=== PATIENT | female | born 1940 | race Caucasian/White ===

== ENCOUNTER → 2020-11-27 14:46 | Outpatient (CLI) | payer MEDICARE, SELFPAY ==
[2020-11-27 16:19] LABS: Alanine Aminotransferase 21 U/L (12-78); Albumin Level 4.8 g/dl (3.5-5.0); Alkaline Phosphatase 63 U/L (38-126); Anion Gap 10.2 mEq/L (5-15); Aspartate Amino Transferase 32 U/L (14-36); Bilirubin,Direct 0.2 mg/dl (0.0-0.4); Bilirubin,Indirect 0.2 mg/dL (0.0-0.9); Bilirubin,Total 0.4 mg/dl (0.2-1.3); Bilirubin,Unconjugated 0.3 mg/dL (0.0-1.1); Blood Urea Nitrogen 19 mg/dl (7-17); Calcium 10.5 mg/dl (8.4-10.2); Carbon Dioxide 33 mmol/L (22.0-30.0); Chloride 102 mmol/L (98-107); Chol/HDL Ratio 4.7 (1-3.5); Cholesterol 231 mg/dl (140-200); Estimated Glomerular Filt Rate 69 ml/min (>60); GFR (African American) 83 ML/MIN (>60); Glucose 86 mg/dl (74-100); HDL Cholesterol 49 mg/dl (40-60); Potassium 4.2 mmoL/L (3.5-5.1); Sodium 141 mmol/L (136-145); Total Protein,Serum 7.6 g/dl (6.3-8.2); Triglycerides 242 mg/dl (30-150); VLDL Cholesterol 48 mg/dL (0-40)
[2020-11-27 16:28] LABS: NT Pro Brain Natriuretic Pep. 1350 pg/mL (0-450)
[2020-11-27 16:50] LABS: Thyroid Stimulating Hormone 1.31 uIU/mL (0.465-4.68)
[2020-11-27 21:23] LABS: Free T4 (Free Thyroxine) 0.89 ng/dl (0.78-2.19)
== END ==
PROVIDERS: PCP General Practice; Visit Provider Internal Medicine Cardiovascular Disease
DX: G47.9 Sleep disorder, unspecified (principal); I20.8 Other forms of angina pectoris; R00.2 Palpitations; R06.00 Dyspnea, unspecified; R94.31 Abnormal electrocardiogram [ECG] [EKG]; Z86.73 Personal history of transient ischemic attack (TIA), and cerebral infarction without residual deficits
CPT/HCPCS: 36415; 80048; 80061; 80076; 83880; 84439; 84443; 93270

== ENCOUNTER → 2020-12-02 12:13 | Outpatient (CLI) | payer MEDICARE, SELFPAY ==
--- NOTE | 2020-12-02 12:59 | CA_ITS ---
APPROVED REPORT EXAM: Comprehensive 2D, Doppler, and color-flow Echocardiogram Administrative Associate: Julianna Sidhu CRT Ht: 5 ft 5 in Wt: 133lbs BSA: 1.66 BP: 156/90 mmHg Indications: Chest Pain, Shortness of Breath, Palpitations, Fatigue, TIA, Radation Therapy-breast CA 2D Dimensions LVOT 1.94 cm (M/F) 1.5-2.5 LA Volume 39.20 mL LA Volume Index 23.60 mL/m2 (M/F) 16-34 M-Mode Dimensions RVDd 2.39 cm (0.9-2.6) LA Diam 3.73 cm (1.9-4.0) LVDd 4.78 cm (3.5-5.7) Ao Diam 3.37 cm (2.0-3.7) LVDs 3.53 cm (3.5-5.7) IVSd 2.00 cm (0.6-1.1) PWd 1.00 cm (0.6-1.1) EF (Teich) 51.30% FS 26.20% EDV (Teich) 106.50 mL TAPSE 2.10 (<1.7) ESV (Teich) 51.90 mL LV Diastology E Decel Time 150.00 (160-240 msec) E/A Ratio 4.52 MED E' 11.80 (< 7 cm/sec) MED A' 7.70 cm/s E'/MED E' Ratio 12.91 (>14) LAT E' 9.00 (<10 cm/sec) LAT A' 8.40 cm/s E/LAT E' Ratio 16.92 (>14) Aortic Valve AI PHT 441.00 ms AO Peak GR. 11.50 mmHg Mitral Valve MV E Max Sachin. 152.00 (40-130 cm/s) MV A Velocity 34.00 (40-130 cm/s) E/A Ratio 4.52 MV Decel. Time 150.00 (160-240 ms) MV PHT 44.00 ms Pulmonary Valve PV Peak Velocity 53.00 (50-150 cm/s) Tricuspid Valve TR P. Velocity 337.00 cm/s RAP Estimate 10.00 mmHg RVSP 55.50 mmHg Left Ventricle Left atrium is mildly enlarged, left ventricle is normal size, severe reduced left ventricular systolic function, visually estimated ejection fraction 30%, there is abnormal septal motion. Doppler evidence of raise left ventricular end-diastolic pressure. Diastolic parameters are inconclusive. Right Ventricle Right atrium and right ventricle are normal size and contractility. Aortic Valve Aortic valve is thickened and calcified without aortic stenosis, there is mild aortic insufficiency. Mitral Valve Mitral valve is minimally thickened, there is moderate to severe mitral regurgitation. Tricuspid Valve Tricuspid grossly normal, there is mild tricuspid regurgitation, calculated right ventricular systolic pressure is 55 mmHg. Pulmonic Valve Pulmonic valve is poorly visualized. Great Vessels Aortic root is normal size. Inferior vena cava is not well visualized. Pericardium Small pericardial effusion noted, there is prominent echogenicity is seen of the pericardium, raising the concerns for presence of increased pericardial thickness and possible constriction. Clinically indicated CT scan of the chest is recommended to assess the thickness of the pericardium. Conclusion 1. Mildly enlarged left atrium, normal left ventricular size, mild concentric left ventricular hypertrophy, reduced left ventricular systolic function, visually estimated ejection fraction 30%, there is abnormal septal motion. Doppler evidence of raise left ventricular end-diastolic pressure, diastolic parameters are inconclusive. 2. Moderate to severe mitral and mild tricuspid regurgitation, calculated right ventricular systolic pressure is 55 mmHg. 3. Small pericardial effusion, increased echogenicity of the pericardium raising the concerns for increased pericardial thickness as well as constriction. If clinically indicated CT scan of the chest is recommended to measure the thickness of the pericardium. Inferior vena cava is not well visualized. Electronically signed by : Cj Guzman, 12/02/2020 21:27:29
--- NOTE | 2020-12-02 12:59 | CA_ITS ---
APPROVED REPORT Scheduling Clerk: LENIN Laterality: Bilateral Study Quality: Good Indications: carotid bruit, TIA Risk Factors TIA/CVA History Doppler Spectral Velocity Analysis ECA (R) 90.50/11.60 cm/s ECA (L) 88.00/11.60 cm/s dICA (R) 89.30/25.10 cm/s dICA (L) 83.40/20.90 cm/s Ifeanyi (R) 62.00/23.00 cm/s Ifeanyi (L) 67.90/23.00 cm/s pICA (R) 48.20/13.50 cm/s pICA (L) 52.20/13.70 cm/s dCCA (R) 60.70/17.10 cm/s dCCA (L) 54.00/12.30 cm/s mCCA (R) 62.00/22.50 cm/s pCCA (L) 87.10/17.60 cm/s pCCA (R) 64.60/13.70 cm/s Vert (L) 69.00/15.50 cm/s Vert (R) 81.80/8.60 cm/s ICA/CCA 1.54 ICA/CCA 1.47 Findings Duplex evaluation demonstrates no evidence of hemodynamically significant stenosis of the bilateral Internal Carotid Arteries. Duplex evaluation demonstrates no evidence of hemodynamically significant stenosis of the bilateral external Carotid Arteries. Duplex evaluation demonstrates stenosis of the left proximal internal carotid artery <20% with PSV <140 cm/sec, EDV <100 cm/sec, and IC/CC Ratio <4.0. Duplex evaluation demonstrates antegrade flow of the bilateral Vertebral Arteries. Duplex evaluation demonstrates stenosis of the right proximal internal carotid artery <20% with PSV <140 cm/sec, EDV <100 cm/sec, and IC/CC Ratio <4.0. Left vertebral artery appears to be 0.51cm in diameter, above normal parameters. Heterogeneous echogenecity of the visualized thyroid gland with suggestion of nodules, incompletely visualized on the current study. Few scattered lymph nodes are noted bilaterally. Conclusion Duplex evaluation demonstrates stenosis of the left proximal internal carotid artery <20% with PSV <140 cm/sec, EDV <100 cm/sec, and IC/CC Ratio <4.0. Duplex evaluation demonstrates antegrade flow of the bilateral Vertebral Arteries. Duplex evaluation demonstrates stenosis of the right proximal internal carotid artery <20% with PSV <140 cm/sec, EDV <100 cm/sec, and IC/CC Ratio <4.0. Heterogeneous echotexture of thyroid gland with possible nodules, incompletely visualized on the current study. Ultrasound of thyroid gland is recommended. Electronically signed by : Larissa Rolle, 12/02/2020 15:53:25
== END ==
PROVIDERS: PCP General Practice; Visit Provider Internal Medicine Cardiovascular Disease
DX: G47.9 Sleep disorder, unspecified (principal); I20.8 Other forms of angina pectoris; R00.2 Palpitations; R06.00 Dyspnea, unspecified; R94.31 Abnormal electrocardiogram [ECG] [EKG]; Z86.73 Personal history of transient ischemic attack (TIA), and cerebral infarction without residual deficits
CPT/HCPCS: 93306; 93880

== ENCOUNTER → 2020-12-04 10:02 | Outpatient (CLI) | payer MEDICARE, SELFPAY ==
--- NOTE | 2020-12-04 10:03 | CT_ITS ---
PROCEDURE: CT ANGIO CHEST CLINCIAL INDICATION: atypical angina Adequate opacification COMPARISON: No exams were available for comparison TECHNIQUE: IV Contrast: 70ML Isovue 370 Axial images obtained with sagittal and coronal reformats. All CT scans at the facility use one or more dose reduction, viz: automated exposure control, ma/kV adjustment per patient size (including targeted exams where dose is matched to indication, i.e. head), or iterative reconstruction technique. FINDINGS: HEART AND MEDIASTINAL STRUCTURES: Adequate opacification of the pulmonary arteries noted. No evidence of pulmonary embolism. The heart size is normal. Small pericardial effusion is noted with maximum depth measuring 1.6 centimeters. The pericardium otherwise appears within normal limits. Atherosclerotic vascular calcification of the thoracic aorta and coronary arteries are noted. LUNGS AND PLEURAL SPACES: No focal consolidation, pleural effusions or pneumothorax. Minor left basal atelectasis. The central tracheobronchial tree is patent. BONY STRUCTURES: No acute bony abnormalities apparent. UPPER ABDOMEN: Visualized upper abdominal solid organs are unremarkable allowing for the phase of IV contrast. ADDITIONAL FINDINGS: Multilevel degenerative changes of the visualized thoracic spine. IMPRESSION: No evidence of pulmonary embolism. Small pericardial effusion. No other acute intrathoracic abnormality. Dictated by: Larissa Rolle 12/04/2020 14:04 Larissa Rolle in [facility] 12/04/2020 14:05
== END ==
PROVIDERS: PCP General Practice; Visit Provider Internal Medicine Cardiovascular Disease
DX: G47.9 Sleep disorder, unspecified (principal); I20.8 Other forms of angina pectoris; R00.2 Palpitations; R06.00 Dyspnea, unspecified; R94.31 Abnormal electrocardiogram [ECG] [EKG]; Z86.73 Personal history of transient ischemic attack (TIA), and cerebral infarction without residual deficits
CPT/HCPCS: 71275; Q9967

== ENCOUNTER → 2020-12-16 15:24 | Outpatient (CLI) | payer MEDICARE, SELFPAY ==
[2020-12-16 16:00] LABS: Basophils % 0.4 % (0.1-2.0); Eosinophils # 0.1 K/mm3 (0.0-0.4); Eosinophils % 1.1 % (0.1-12.0); Hematocrit 41.1 % (37.0-47.0); Hemoglobin 14.1 g/dL (12.2-16.2); Lymphocytes # 2.8 K/mm3 (0.7-4.5); Lymphocytes % 34.2 % (10-50); Mean Corpuscular HGB Conc 34.4 g/dL (31.8-35.4); Mean Corpuscular Hemoglobin 32.7 pg (27.0-31.2); Mean Corpuscular Volume 95.1 fl (81-99); Mean Platelet Volume 7.8 fl (7.4-10.4); Monocytes # 0.4 K/mm3 (0.1-1.0); Monocytes % 5.1 % (1.7-9.3); Neutrophils # 4.8 K/mm3 (1.8-7.8); Neutrophils % 59.2 % (37.0-80.0); Platelet Count 191 K/mm3 (142-424); Red Blood Count 4.32 M/mm3 (4.20-5.40); Red Cell Distribution Width 12.2 % (11.5-17.5); White Blood Count 8.1 K/mm3 (4.8-10.8)
[2020-12-16 16:14] LABS: Anion Gap 7.4 mEq/L (5-15); Blood Urea Nitrogen 19 mg/dl (7-17); Calcium 9.2 mg/dl (8.4-10.2); Carbon Dioxide 29 mmol/L (22.0-30.0); Chloride 103 mmol/L (98-107); Estimated Glomerular Filt Rate 53 ml/min (>60); GFR (African American) 64 ML/MIN (>60); Glucose 106 mg/dl (74-100); Potassium 4.4 mmoL/L (3.5-5.1); Sodium 135 mmol/L (136-145)
== END ==
PROVIDERS: Visit Provider Internal Medicine Cardiovascular Disease
DX: I20.8 Other forms of angina pectoris (principal); I25.84 Coronary atherosclerosis due to calcified coronary lesion; I27.20 Pulmonary hypertension, unspecified; I34.0 Nonrheumatic mitral (valve) insufficiency; I50.20 Unspecified systolic (congestive) heart failure; R00.2 Palpitations; R06.00 Dyspnea, unspecified; R93.1 Abnormal findings on diagnostic imaging of heart and coronary circulation; R94.31 Abnormal electrocardiogram [ECG] [EKG]; Z86.73 Personal history of transient ischemic attack (TIA), and cerebral infarction without residual deficits; Z01.812 Encounter for preprocedural laboratory examination; U07.1 COVID-19; Z20.822 Contact with and (suspected) exposure to COVID-19
CPT/HCPCS: 80048; 85025; U0003

== ENCOUNTER 2020-12-18 08:29 | Day surgery (SDC) | payer MEDICARE, SELFPAY ==
[2020-12-18] VITALS (11 sets, daily range): BP systolic 90–188; BP diastolic 45–89; PULSE 57–74; RESP 16–18; TEMP 36.3–36.8; O2SAT 96–100; BMI 22.3
--- NOTE | 2020-12-18 07:10 | IR_ITS ---
APPROVED REPORT Patient Location: Outpatient PROCEDURES Right heart catheterization Left heart catheterization Left ventriculogram Selective coronary angiogram INDICATION Systolic congestive heart failure ejection fraction 30%, Pulmonary hypertension, Coronary artery calcification, Abnormal echocardiogram Informed consent was obtained prior to the procedure. COMPLICATIONS None Estimated Blood Loss: Less than 10 mls TECHNIQUE One percent lidocaine was used to anesthetize the right anterior aspect of the right wrist. The right radial artery was accessed via the Seldinger technique and a 6 [place] hydrophilic sheath was placed in the right radial artery. Following this one percent lidocaine was used to anesthetize the right anterior aspect of the right neck. The right internal jugular vein was accessed via the Seldinger technique and a 7 [place] sheath was placed in the right internal jugular vein. Following this an arterial cocktail was administered using 5000U heparin, 2.5 mg verapamil, 1mg Lidocaine and 800mcg nitroglycerin into the right radial sheath. A trap catheter was used to perform left heart catheterization left ventriculogram and selective coronary angiography while a [place] catheter was used to perform right heart catheterization. Saturations were obtained in the pulmonary artery and right atrium. At the end of the procedure the arterial sheath was removed good hemostasis was achieved using Traclet band. Patient was transferred to the postop holding area in stable condition for venous sheath removal. ANGIOGRAPHIC RESULTS The left main artery Normal The left anterior descending artery Has a proximal smooth 30% eccentric stenosis The circumflex artery There is a large dominant vessel and normal The right coronary artery Vestigial and normal The IGLESIAS ventriculogram reveals Normal 65% The left ventricular end-diastolic pressure Less than 10 mmHg Right atrial pressure 3 mmHg Pulmonary artery pressure 20/8 mmHg Pulmonary occlusion pressure 6 mmHg Right atrial saturation 81% Pulmonary saturation 80% IMPRESSION Mild nonflow limiting coronary disease Normal ejection fraction Low intracardial pulmonary filling pressures PLAN 1. Medical management Electronically signed by : Zain Gonsalez, 12/18/2020 10:41:28
[2020-12-18 14:10] LABS: CATHL Arterial O2 SAT 80 % (90-100); CATHL Venous O2 SAT 82 % (75-80)
== END 2020-12-18 13:57 | disposition home or self-care (01) ==
LOC: CATHLAB 08:33
PROVIDERS: PCP General Practice; Visit Provider Internal Medicine
DX: I25.84 Coronary atherosclerosis due to calcified coronary lesion; I27.20 Pulmonary hypertension, unspecified; I34.0 Nonrheumatic mitral (valve) insufficiency; I50.20 Unspecified systolic (congestive) heart failure; I51.9 Heart disease, unspecified; R00.2 Palpitations; R06.00 Dyspnea, unspecified; R93.1 Abnormal findings on diagnostic imaging of heart and coronary circulation; R94.31 Abnormal electrocardiogram [ECG] [EKG]; Z86.73 Personal history of transient ischemic attack (TIA), and cerebral infarction without residual deficits; I25.118 Atherosclerotic heart disease of native coronary artery with other forms of angina pectoris
CPT/HCPCS: 82810; 93460; 99152; C1725; C1769; C1894; J1644; Q9967

== ENCOUNTER → 2021-01-29 13:13 | Outpatient (CLI) | payer MEDICARE, SELFPAY ==
--- NOTE | 2021-01-29 13:14 | NM_ITS ---
APPROVED REPORT NM Technologist: JADYN Miles, RT (R)(N) Indication Abnormal ECG Pulmonary Hypertention Mitral Valve Prolapse Cardiac Disease: CAD Cardiomyopathy Congestive Heart Failure Procedure The above named patient was injected with 26.8 mCi of Tc99m tagged red blood cells. Impression LVEF lower normal at 53% Mild inferior and septal hypokinesia Conclusion LVEF lower normal at 53% Mild inferior and septal hypokinesia Electronically signed by : Mal Denis MD 01/30/2021 14:28:43
--- NOTE | 2021-01-29 15:12 | HMH.ITSHM ---
Current Home Medications as stated by this patient Krystyna Hassan or field representative. []TAMOXIFEN OMEPRAZOLE LOSARTAN BISOPROLOL ATORVASTATIN
== END ==
PROVIDERS: PCP General Practice; Visit Provider Internal Medicine Cardiovascular Disease
DX: I25.10 Atherosclerotic heart disease of native coronary artery without angina pectoris (principal); I27.20 Pulmonary hypertension, unspecified; I34.0 Nonrheumatic mitral (valve) insufficiency; I50.20 Unspecified systolic (congestive) heart failure; I51.9 Heart disease, unspecified; R94.31 Abnormal electrocardiogram [ECG] [EKG]; Z86.73 Personal history of transient ischemic attack (TIA), and cerebral infarction without residual deficits
CPT/HCPCS: 78473; A9512; A9560

== ENCOUNTER → 2021-10-23 09:39 | Outpatient (CLI) | payer MEDICARE, SELFPAY ==
--- NOTE | 2021-10-23 09:40 | CA_ITS ---
APPROVED REPORT EXAM: Comprehensive 2D, Doppler, and color-flow Echocardiogram Blade Grader Operator: Julianna Sidhu CRT Ht: 5 ft 5 in Wt: 136lbs BSA: 1.68 BP: 1555/88 mmHg Indications: hx tia's, phtn, severe mr cad 2D Dimensions LVOT 1.78 cm (M/F) 1.5-2.5 LA Volume 40.90 mL LA Volume Index 24.30 mL/m2 (M/F) 16-34 M-Mode Dimensions RVDd 3.05 cm (0.9-2.6) LA Diam 2.46 cm (1.9-4.0) LVDd 5.56 cm (3.5-5.7) Ao Diam 4.03 cm (2.0-3.7) LVDs 4.45 cm (3.5-5.7) IVSd 1.68 cm (0.6-1.1) PWd 0.51 cm (0.6-1.1) EF (Teich) 40.40% FS 20.00% EDV (Teich) 151.20 mL TAPSE 2.40 (<1.7) ESV (Teich) 90.10 mL LV Diastology E Decel Time 350.00 (160-240 msec) E/A Ratio 1.64 MED E' 8.60 (< 7 cm/sec) MED A' 5.40 cm/s E'/MED E' Ratio 15.09 (>14) LAT E' 11.80 (<10 cm/sec) LAT A' 5.80 cm/s E/LAT E' Ratio 11.00 (>14) Aortic Valve AI PHT 571.00 ms AO Peak GR. 12.00 mmHg Mitral Valve MV E Max Sachin. 130.00 (40-130 cm/s) MV A Velocity 79.00 (40-130 cm/s) E/A Ratio 1.64 MV Decel. Time 350.00 (160-240 ms) MV PHT 103.00 ms Pulmonary Valve PV Peak Velocity 226.00 (50-150 cm/s) Tricuspid Valve TR P. Velocity 319.00 cm/s RAP Estimate 10.00 mmHg RVSP 50.80 mmHg Left Ventricle Left atrium is moderately enlarged, left ventricle is mildly dilated, visually estimated ejection fraction 30%, left ventricle appears to be globally hypokinetic, diastolic parameters are inconclusive. Right Ventricle Right atrium right ventricle mildly enlarged with normal contractility. Aortic Valve Aortic valve is minimally thickened and fibrosed there is no aortic stenosis, there is mild aortic insufficiency. Mitral Valve Mitral valve is minimally thickened, there is moderate to severe mitral regurgitation. Tricuspid Valve Tricuspid grossly normal, there is mild tricuspid regurgitation, calculated right ventricular systolic pressure is 51 mmHg. Pulmonic Valve Pulmonic valve is poorly visualized. Great Vessels Aortic root is normal size. Inferior vena cava is mildly dilated without significant inspiratory collapse. Pericardium No significant pericardial effusion noted. Conclusion 1. Biatrial enlargement, mildly dilated left ventricle, severe reduced left ventricular systolic function, visually estimated ejection fraction 30% left ventricle is globally hypokinetic, diastolic parameters are inconclusive. 2. Mild aortic, mild tricuspid and moderate to severe mitral regurgitation, calculated right ventricular systolic pressure is 51 mmHg. 3. Inferior vena cava is mildly dilated without significant inspiratory collapse. Electronically signed by : Cj Guzman MD 10/23/2021 15:36:00
== END ==
PROVIDERS: PCP General Practice; Visit Provider Physician Assistant
DX: I25.10 Atherosclerotic heart disease of native coronary artery without angina pectoris (principal); I34.0 Nonrheumatic mitral (valve) insufficiency
CPT/HCPCS: 93306

== ENCOUNTER → 2022-04-23 12:13 | Outpatient (CLI) | payer MEDICARE, SELFPAY ==
--- NOTE | 2022-04-23 12:15 | CA_ITS ---
APPROVED REPORT EXAM: Comprehensive 2D, Doppler, and color-flow Echocardiogram Manager Internet: Linette Dean, RT(R) Ht: 5 ft 5 in Wt: 134lbs BSA: 1.67 BP: 175/95 mmHg Indications: CM, SOB, atypical CP, CAD, mod-severe MR echo 10/2021, hyperlipdemia, LV dysfunction, PHTN, abn EKG. 2D Dimensions LVOT 2.08 cm (M/F) 1.5-2.5 LVEF (Ayoub's) 35.80 % F: 54 - 74 LV Volume 135.20 mL F: 46 - 106 LV Volume Index 80.95 mL/m2 F: 29 - 61 LA Volume 32.70 mL LA Volume Index 19.58 mL/m2 (M/F) 16-34 M-Mode Dimensions RVDd 2.17 cm (0.9-2.6) LA Diam 2.17 cm (1.9-4.0) LVDd 5.17 cm (3.5-5.7) Ao Diam 2.67 cm (2.0-3.7) LVDs 4.41 cm (3.5-5.7) IVSd 0.76 cm (0.6-1.1) PWd 1.07 cm (0.6-1.1) EF (Teich) 31.00% FS 14.70% EDV (Teich) 127.80 mL ESV (Teich) 88.20 mL LV Diastology E Decel Time 163.00 (160-240 msec) E/A Ratio 0.7 MED E' 4.10 (< 7 cm/sec) E'/MED E' Ratio 18.83 (>14) LAT E' 5.70 (<10 cm/sec) E/LAT E' Ratio 13.54 (>14) Aortic Valve AI PHT 778.00 ms Mitral Valve MV E Max Sachin. 77.00 (40-130 cm/s) MV A Velocity 114.00 (40-130 cm/s) E/A Ratio 0.68 MV Decel. Time 163.00 (160-240 ms) MV PHT 48.00 ms Tricuspid Valve TR P. Velocity 300.00 cm/s RAP Estimate 15.00 mmHg RVSP 51.00 mmHg Left Ventricle Left atrium is mildly enlarged, left ventricle is mildly dilated, mild concentric left ventricular hypertrophy, estimated ejection fraction 30%, left ventricle appears to be globally hypokinetic, grade 1 diastolic dysfunction seen without tissue Doppler evidence of raise left atrial pressure. Right Ventricle Right atrium and right ventricle are normal size and contractility. Aortic Valve Aortic valve is thickened and calcified without aortic stenosis, there is mild aortic insufficiency. Mitral Valve Mitral valve is minimally thickened, there is moderate mitral regurgitation. Tricuspid Valve Tricuspid valve is grossly normal, there is mild tricuspid regurgitation, calculated right ventricular systolic pressure is 46 mmHg. Pulmonic Valve Pulmonic valve is poorly visualized. Great Vessels Aortic root is normal size. Inferior vena cava is normal size with normal inspiratory collapse. Pericardium No significant pericardial effusion noted. Conclusion 1. Mildly enlarged left atrium, mildly dilated ventricle, mild concentric left ventricular hypertrophy, estimated ejection fraction 30%, left ventricle appears to be globally hypokinetic, grade 1 diastolic dysfunction seen without tissue Doppler evidence of raise left atrial pressure. 2. Thickened and calcified aortic valve without aortic stenosis, there is mild aortic insufficiency. 3. Moderate mitral and mild tricuspid regurgitation, calculated right ventricular systolic pressure is 46 mmHg. 4. No significant pericardial effusion noted. 5. Inferior vena cava is normal size with normal inspiratory collapse. Electronically signed by : Cj Guzman MD 04/23/2022 14:55:02
== END ==
PROVIDERS: PCP General Practice; Visit Provider Nurse Practitioner Family
DX: I25.10 Atherosclerotic heart disease of native coronary artery without angina pectoris (principal); I27.20 Pulmonary hypertension, unspecified; I34.0 Nonrheumatic mitral (valve) insufficiency; I50.20 Unspecified systolic (congestive) heart failure; R94.31 Abnormal electrocardiogram [ECG] [EKG]; I42.8 Other cardiomyopathies
CPT/HCPCS: 93306

== ENCOUNTER → 2022-05-07 11:45 | Outpatient (CLI) | payer MEDICARE, SELFPAY ==
[2022-05-07 13:26] LABS: Anion Gap 14.9 mEq/L (5-15); Blood Urea Nitrogen 18 mg/dl (7-17); Calcium 9.1 mg/dl (8.4-10.2); Carbon Dioxide 27 mmol/L (22.0-30.0); Chloride 103 mmol/L (98-107); Estimated Glomerular Filt Rate 60 ml/min (>60); GFR (African American) 73 ML/MIN (>60); Glucose 85 mg/dl (74-100); Potassium 3.9 mmoL/L (3.5-5.1); Sodium 141 mmol/L (136-145)
[2022-05-07 15:16] LABS: Basophils % 0.6 % (0.1-2.0); Eosinophils % 0.5 % (0.1-12.0); Hematocrit 44.7 % (37.0-47.0); Hemoglobin 14.9 g/dL (12.2-16.2); Lymphocytes # 1.6 K/mm3 (0.7-4.5); Lymphocytes % 23.9 % (10-50); Mean Corpuscular HGB Conc 33.4 g/dL (31.8-35.4); Mean Corpuscular Hemoglobin 32.7 pg (27.0-31.2); Mean Corpuscular Volume 98.1 fl (81-99); Mean Platelet Volume 9.7 fl (7.4-10.4); Monocytes # 0.4 K/mm3 (0.1-1.0); Monocytes % 5.4 % (1.7-9.3); Neutrophils # 4.7 K/mm3 (1.8-7.8); Neutrophils % 69.6 % (37.0-80.0); Platelet Count 212 K/mm3 (142-424); Red Blood Count 4.56 M/mm3 (4.20-5.40); Red Cell Distribution Width 12.9 % (11.5-17.5); White Blood Count 6.8 K/mm3 (4.8-10.8)
== END ==
PROVIDERS: PCP General Practice; Visit Provider Internal Medicine Cardiovascular Disease
DX: E78.5 Hyperlipidemia, unspecified (principal); I25.10 Atherosclerotic heart disease of native coronary artery without angina pectoris; I27.20 Pulmonary hypertension, unspecified; I34.0 Nonrheumatic mitral (valve) insufficiency; I35.1 Nonrheumatic aortic (valve) insufficiency; I42.8 Other cardiomyopathies; I50.20 Unspecified systolic (congestive) heart failure; R94.31 Abnormal electrocardiogram [ECG] [EKG]
CPT/HCPCS: 36415; 80048; 85025

== ENCOUNTER → 2022-12-15 10:17 | Outpatient (CLI) | payer MEDICARE, SELFPAY | PROVIDERS: PCP General Practice; Visit Provider Physician Assistant | DX: E78.5 Hyperlipidemia, unspecified (principal); I25.10 Atherosclerotic heart disease of native coronary artery without angina pectoris; I27.20 Pulmonary hypertension, unspecified; I34.0 Nonrheumatic mitral (valve) insufficiency; I35.1 Nonrheumatic aortic (valve) insufficiency; I42.8 Other cardiomyopathies; I50.20 Unspecified systolic (congestive) heart failure; I51.9 Heart disease, unspecified; R94.31 Abnormal electrocardiogram [ECG] [EKG] | CPT/HCPCS: 93306 ==

== ENCOUNTER → 2022-12-24 09:25 | Outpatient (CLI) | payer MEDICARE, SELFPAY ==
--- NOTE | 2022-12-24 09:28 | NM_ITS ---
APPROVED REPORT NM Technologist: JADYN Srivastava RT(R)(N) Indication Chest pressure Cardiac Disease: CAD Mitral Valve Disease Cardiac Risk Factors Hypertension: CAD, Surgery/Intervention Pacemaker: Procedure The above named patient was injected with 25.9 mCi of Tc99m tagged red blood cells. The above named patient was injected with 5.0 mg of cold stannous pyrophosphate. After 20.0 min, the patient was injected with 25.9 mCi of Technecium-99m pertechnetate. Findings Calculated LV Ejection Fraction is 51.0%. Normal Ejection Fraction for this facility is 50.0%. Left Ventricle: The left ventricle is mildly dilated. Calculated left ventricular ejection fraction is low normal at 51%. Right Ventricle: The right ventricle is of normal size and shape. Wall Motion: There is normal global left ventricular systolic function. There is moderate hypokinesis of the inferior and inferoseptal LV moreau. Right ventricular motion is within normal limits. Impression Abnormal MUGA study. Calculated left ventricular ejection fraction is 51 %. Low Normal left ventricular systolic function. Abnormal inferior and septal wall motion. Left Ventricular size was abnormal. Image quality was fair. There was a moderate inferior and septal wall motion abnormality. Electronically signed by : Charisse Velasquez, 12/27/2022 02:24:15
== END ==
PROVIDERS: PCP General Practice; Visit Provider Physician Assistant
DX: E78.5 Hyperlipidemia, unspecified (principal); I20.8 Other forms of angina pectoris; I27.20 Pulmonary hypertension, unspecified; I34.0 Nonrheumatic mitral (valve) insufficiency; R06.02 Shortness of breath; R94.31 Abnormal electrocardiogram [ECG] [EKG]; I42.8 Other cardiomyopathies
CPT/HCPCS: 78473; A9512